=== PATIENT | female | born 1955 | race Caucasian/White ===

== ENCOUNTER → 2019-09-18 | Day surgery (SDC) | payer MEDICARE, MEDICAID ==
[~2019-09-18] MED LIST: Dextrose 5%-Lactated Ringers 1,000 ML IV SCH; Glycopyrrolate 0.2 MG/ML 2 ML SDV IVPUSH ONE; Midazolam 1 MG/ML 2 ML SDV ONE; Propofol 200 MG/20 ML SDV ONE; fentaNYL 100 MCG/2 ML SDV ONE
--- NOTE | 2019-09-18 13:51 | CRLCT ---
INDICATION: Lung nodules, abdominal bloating and nausea COMPARISON: None available TECHNIQUE: Nonenhanced axial CT imaging through the chest, abdomen, and pelvis. Sagittal and coronal reconstructions are provided. Oral contrast was administered. FINDINGS: Chest: There are moderate upper lobe predominant emphysematous changes in the lungs bilaterally. There is bilateral subpleural apical scarring with nodularity. This measures to 2.1 x 2.0 x 4.4 cm in the right lung apex m and 2.0 x 1.9 x 3.9 cm in the left lung apex. Additionally, there is a 1.0 cm partially solid nodular density in the posterior left upper lobe. A few mildly enlarged mediastinal lymph nodes are noted in the pretracheal station, measuring up to 1.3 cm in short axis. There is no airspace consolidation or pulmonary vascular congestion. There is no pleural effusion or pneumothorax. The cardiac silhouette is not enlarged. There are mild scattered coronary artery calcifications. There is no pericardial effusion. The main pulmonary artery and thoracic aorta are normal caliber. The thoracic osseous structures are unremarkable. Abdomen/pelvis: There are numerous enlarged bilateral periaortic lymph nodes measuring up to 2.2 cm in short axis. There is no mesenteric lymphadenopathy. There is unremarkable noncontrast appearance of the liver, gallbladder, pancreas, adrenal glands, and kidneys. The spleen is enlarged, measuring up to 18 cm craniocaudally. There is normal caliber of the abdominal aorta. The stomach and duodenum are unremarkable. There are no abnormally dilated small bowel loops. The appendix is noninflamed. The colon is unremarkable. There is no colonic wall thickening. A cystic lesion is noted in the pelvis, along the posterior margin of the uterus. This measures 11.5 x 11.0 x 8.2 cm. No internal nodularity or septations are appreciated. There is mild chronic compression deformity of L1. There are no suspicious osseous lesions. IMPRESSION: 1. Extensive retroperitoneal lymphadenopathy. Findings are concerning for lymphoma. Mild mediastinal lymphadenopathy may represent additional site of involvement. Further evaluation with PET/CT and biopsy is recommended. 2. Bilateral pulmonary apical subpleural scarring with associated nodularity, slightly more pronounced on the right. Underlying neoplasm is not excluded. Further evaluation with PET/CT is suggested. 3. Moderate apical predominant pulmonary emphysema. 4. Indeterminate pelvic cystic lesion along the posterior margin of the uterus measuring up to 11.5 cm. No enhancing internal nodularity or septations are appreciated. Surgical consultation is recommended. Please note that all CT scans at this facility use dose modulation, iterative reconstruction, and/or weight-based dosing when appropriate to reduce radiation dose to as low as reasonably achievable. Dictated by Sung Velásquez MD @ Sep 18 2019 1:25PM Signed by Dr. Sung Velásquez @ Sep 18 2019 1:49PM
--- NOTE | 2019-09-29 08:32 | OR ---
DATE OF PROCEDURE: 09/18/2019 SURGEON: Vaughn Brand MD PREOPERATIVE DIAGNOSES: Postprandial bloating and nausea associated with small hiatal hernia and mild gastroesophageal reflux disease and mild antral gastritis. OPERATIVE PROCEDURES: Esophagogastroduodenoscopy with: 1. Biopsy of esophagogastric junction for histologic evaluation. 2. Biopsies of antrum for CLOtest. ANESTHESIA: IV sedation. INDICATION FOR PROCEDURE: This is a 64-year-old female presenting with the above-noted symptoms. She was recently started on omeprazole 20 mg a day just a few days ago and has not noted significant change in her symptoms. The plan is to proceed with upper GI endoscopy with biopsies as indicated. Potential risks including bleeding and perforation were discussed, and the patient wishes to proceed. DETAILS OF PROCEDURE: The patient was taken to the operating room and placed in a left lateral decubitus position. IV sedation was administered, after which the upper GI endoscope was passed orally through the length of the esophagus, into the stomach with retroflexion view of the fundus, thereafter through the pyloric channel and into the proximal duodenum. Findings included normal hypopharynx, larynx, upper esophageal sphincter, and esophageal body. At the EG junction, there was a small hiatal hernia and some mild inflammation at the EG junction mucosa. No stricturing or plaquing suggesting neoplasia were seen. In the stomach, there was some patchy redness in the antrum, otherwise, remainder of the stomach and duodenum to the junction of the third and fourth portions were unremarkable. At this point, biopsies were obtained from the antrum and sent for CLOtest for H pylori. Multiple biopsies were obtained from esophagogastric junction and sent for histologic evaluation. Minimal bleeding from the biopsy sites was seen. The patient's symptoms and findings do not appear to be explained by the upper endoscopic findings. It was noted that she had some lung nodules on a CT scan dated 2016, which were thought to warrant PET scanning and possible tissue sampling, but this has not been followed up on. Given this, we obtained a followup CT scan of the chest, as well as CT scan of the abdomen, given her abdominal symptoms. The CT scan of the chest showed the nodules to be somewhat more pronounced, particularly on the right side, and a PET CT was suggested followed by probable tissue sampling. The patient was also noted to have extensive retroperitoneal lymphadenopathy concerning for lymphoma. The next step in this case should likely be a PET scan. We were working on getting arrangements for this in [place] with the patient having transportation issues, but we should be able to work that out. Once those are back, then we can decide on how to approach the tissue sampling issues. Lung biopsies could be done here with Dr. Song Trejo, and if need be, we could do a laparoscopic examination to get some of the retroperitoneal lymph nodes sampled. We will see the patient back next Sunday and may try to keep the care being coordinated. Vaughn Brand MD /[id number]
== END ==
LOC: JP.SDS 07:31
PROVIDERS: ATTEND Surgery
DX: K21.0 Gastro-esophageal reflux disease with esophagitis (principal); K44.9 Diaphragmatic hernia without obstruction or gangrene; K29.70 Gastritis, unspecified, without bleeding; J44.9 Chronic obstructive pulmonary disease, unspecified; E78.5 Hyperlipidemia, unspecified; F17.200 Nicotine dependence, unspecified, uncomplicated; Z79.899 Other long term (current) drug therapy
CPT/HCPCS: 36415; 43239; 71250; 74176; 80053; 85027; 87081; 88305; J2250; J2704; J3010; J3490; J7121

== ENCOUNTER 2020-05-07 13:34 | Emergency (ER) | payer MEDICARE, MEDICAID ==
[2020-05-07] MEDS ORDERED: Sodium Chloride 0.9% 10 ML Syringe FLUSH PRN (14:33)
--- NOTE | 2020-05-07 14:34 | EDM.PDOC ---
<Kecia Johnson M - Last Filed: 05/07/20 15:16> ED HPI GENERAL MEDICAL PROBLEM - General Chief Complaint: General Stated Complaint: I am here because my calcium is high and my kidneys are not doing great Time Seen by Provider: 05/07/20 18:03 Source of Information: Reports: Patient, RN, RN Notes Reviewed History Limitations: Reports: No Limitations - History of Present Illness INITIAL COMMENTS - FREE TEXT/NARRATIVE: Pt here after a dr visit yesterday in [place]. Pt has hypercalcemia 14.6 and poor kidney function. Pt refused to be admitted to [place] but was told she could come here for some "IV fluids". Denies pain, SOB, chills, night sweats, or any neurological or cognitive issues. Pt is anxious to be done with IV fluids and go home as she has a lot to do. Pt is refusing most interventions. - Related Data Allergies Allergy/AdvReac Type Severity Reaction Status Date / Time Penicillins Allergy Unknown Other Verified 05/07/20 13:53 tetanus toxoid, adsorbed Allergy Unknown Swelling Verified 05/07/20 13:53 Home Meds: Home Meds predniSONE [Prednisone] 20 mg PO TID 02/04/20 [History] Loperamide [Imodium] 2 mg PO ASDIRECTED 05/07/20 [History] Past Medical History HEENT History: Reports: Impaired Vision Respiratory History: Reports: COPD, Pneumothorax, Other (See Below) Other Respiratory History: Lung nodlules, hx of pneumo Gastrointestinal History: Reports: GERD, Other (See Below) Other Gastrointestinal History: bloating and abdominal discomfort. left gland on neck infected and removed r/t infected wisdom tooth Genitourinary History: Reports: Chronic Renal Insuffiency, Renal Calculus SURGICAL SERVICES ASST History: Reports: Musculoskeletal History: Reports: Other (See Below) Other Musculoskeletal History: left hip Neurological History: Reports: None - Past Surgical History HEENT Surgical History: Reports: Cataract Surgery Respiratory Surgical History: Reports: Other (See Below) GI Surgical History: Reports: None Female Surgical History: Reports: Tubal Ligation Neurological Surgical History: Reports: Other (See Below) Other Neurological Surgeries/Procedures: compression fx Musculoskeletal Surgical History: Reports: None Social & Family History - Family History Family Medical History: Noncontributory - Tobacco Use Smoking Status *Q: Current Every Day Smoker Years of Tobacco use: 53 Packs/Tins Daily: 0.7 - Caffeine Use Caffeine Use: Reports: Soda - Recreational Drug Use Recreational Drug Use: No ED ROS GENERAL - Review of Systems Review Of Systems: See Below Constitutional: Reports: No Symptoms HEENT: Reports: No Symptoms Respiratory: Reports: No Symptoms Cardiovascular: Reports: No Symptoms Endocrine: Reports: Other (hypercalcemia ) GI/Abdominal: Reports: No Symptoms : Reports: No Symptoms Musculoskeletal: Reports: No Symptoms Skin: Reports: No Symptoms Neurological: Reports: No Symptoms Psychiatric: Reports: No Symptoms Hematologic/Lymphatic: Reports: No Symptoms Immunologic: Reports: No Symptoms ED EXAM, GENERAL - Physical Exam Exam: See Below Exam Limited By: No Limitations General Appearance: Alert, WD/WN, No Apparent Distress Throat/Mouth: No Airway Compromise Head: Normocephalic Neck: Normal Inspection, Supple, Non-Tender, Thyromegaly Respiratory/Chest: No Respiratory Distress Cardiovascular: Regular Rate, Rhythm, No Murmur (Female) Exam: Deferred Rectal (Female) Exam: Deferred Neurological: Alert, Oriented, CN II-XII Intact Psychiatric: Anxious Skin Exam: Warm, Dry Course - Re-Assessments/Exams Free Text/Narrative Re-Assessment/Exam: 05/07/20 15:16 Ica 2.00 and Ca 14.0 Departure - Departure Disposition: Home, Self-Care 01 Clinical Impression: Hypercalcemia - Discharge Information Referrals: Donald Savage MD [Primary Care Provider] - Forms: ED Department Discharge Additional Instructions: Please continue with your prednisone, please follow-up for your lab appointment on Sunday and follow-up with your physicians please return to the emergency department worsening of symptoms, the offer for hospitalization is still remaining to help get your calcium under control Sepsis Event Note (ED) - Evaluation Sepsis Screening Result: No Definite Risk <OfficerEsau - Last Filed: 05/07/20 18:05> ED ROS GENERAL - Review of Systems Review Of Systems: See Below (Agree with below) ED EXAM, GENERAL - Physical Exam Free Text/Narrative:: Agree with below Course - Vital Signs Last Recorded V/S: Last Vital Signs Temp 98.5 F 05/07/20 14:09 Pulse 91 05/07/20 16:14 Resp 16 05/07/20 14:56 BP 110/59 L 05/07/20 16:14 Pulse Ox 99 05/07/20 16:14 - Orders/Labs/Meds Orders: Active Orders 24 hr Category Date Time Status Peripheral IV Care [RC] . DIRECTED Care 05/07/20 14:33 Active Sodium Chloride 0.9% [Normal Saline] 1,000 ml Med 05/07/20 14:45 Active IV ASDIRECTED Sodium Chloride 0.9% [Saline Flush] Med 05/07/20 14:33 Active 10 ml FLUSH ASDIRECTED PRN Peripheral IV Insertion Adult [OM.PC] Urgent Oth 05/07/20 14:32 Ordered Medication Orders Sodium Chloride (Normal Saline) 1,000 mls @ 999 mls/hr IV ASDIRECTED CONCEPCION Last Admin: 05/07/20 16:45 Dose: 999 mls/hr Documented by: Infusion: 05/07/20 16:15 Dose: 999 mls/hr Documented by: Admin: 05/07/20 15:14 Dose: 999 mls/hr Documented by: JC Sodium Chloride (Saline Flush) 10 ml FLUSH ASDIRECTED PRN PRN Reason: Keep Vein Open Last Admin: 05/07/20 15:14 Dose: 10 ml Documented by: JC Labs: Laboratory Tests 05/07/20 05/07/20 05/07/20 Range/Units 14:52 14:52 14:54 WBC 4.7 (4.5-11.0) K/uL RBC 2.53 L (3.30-5.50) M/uL Hgb 7.5 L D (12.0-15.0) g/dL Hct 24.8 L (36.0-48.0) % MCV 98 (80-98) fL MCH 30 (27-31) pg MCHC 30 L (32-36) % Plt Count 190 (150-400) K/uL Neut % (Auto) 90 H (36-66) % Lymph % (Auto) 6 L (24-44) % [place] % (Auto) 4 (2-6) % Eos % (Auto) 0 L (2-4) % Baso % (Auto) 0 (0-1) % Sodium 136 L (140-148) mmol/L Potassium 3.8 (3.6-5.2) mmol/L Chloride 101 (100-108) mmol/L Carbon Dioxide 25 (21-32) mmol/L Anion Gap 13.8 (5.0-14.0) mmol/L BUN 24 H D (7-18) mg/dL Creatinine 3.1 H D (0.6-1.0) mg/dL Est Cr Clr Drug Dosing 14.09 mL/min Estimated GFR (MDRD) 15 L (>60) Glucose 116 H (74-106) mg/dL Calcium 14.0 H* D (8.5-10.1) mg/dL POC WB Ioniz Calcium 2.00 H* (1.12-1.32) mmol/L Total Bilirubin 0.6 (0.2-1.0) mg/dL AST 19 (15-37) U/L ALT 24 (12-78) U/L Alkaline Phosphatase 259 H (46-116) U/L Total Protein 6.4 (6.4-8.2) g/dL Albumin 2.7 L (3.4-5.0) g/dL Globulin 3.7 H (2.3-3.5) g/dL Albumin/Globulin Ratio 0.7 L (1.2-2.2) Meds: Medications Generic Name Dose Route Start Last Admin Trade Name Freq PRN Reason Stop Dose Admin Sodium Chloride 1,000 mls @ 999 mls/hr 05/07/20 14:45 05/07/20 16:45 Normal Saline IV 999 mls/hr ASDIRECTED CONCEPCION Administration Sodium Chloride 10 ml 05/07/20 14:33 05/07/20 15:14 Saline Flush FLUSH 10 ml ASDIRECTED PRN Administration Keep Vein Open Discontinued Medications Generic Name Dose Route Start Last Admin Trade Name Freq PRN Reason Stop Dose Admin Calcitonin [place] 200 units 05/07/20 14:35 05/07/20 15:26 Miacalcin SUBCUT 05/07/20 14:36 Not Given ONETIME ONE Calcitonin [place] 200 units 05/07/20 15:00 05/07/20 15:02 Miacalcin SUBCUT 05/07/20 15:01 200 units ONETIME ONE Administration Departure - Departure Time of Disposition: 18:05 Condition: Poor Sepsis Event Note (ED) - Focused Exam Vital Signs: Vital Signs Temp Pulse Resp BP Pulse Ox 05/07/20 16:14 91 110/59 L 99 05/07/20 15:37 92 107/58 L 100 05/07/20 14:56 92 16 104/55 L 99 05/07/20 14:09 98.5 F 100 20 103/42 L 98 - My Orders Last 24 Hours: My Active Orders 05/07/20 14:32 Peripheral IV Insertion Adult [OM.PC] Urgent 05/07/20 14:33 Peripheral IV Care [RC] . DIRECTED Sodium Chloride 0.9% [Saline Flush] 10 ml FLUSH ASDIRECTED PRN 05/07/20 14:45 Sodium Chloride 0.9% [Normal Saline] 1,000 ml IV ASDIRECTED - Assessment/Plan Last 24 Hours: My Active Orders 05/07/20 14:32 Peripheral IV Insertion Adult [OM.PC] Urgent 05/07/20 14:33 Peripheral IV Care [RC] . DIRECTED Sodium Chloride 0.9% [Saline Flush] 10 ml FLUSH ASDIRECTED PRN 05/07/20 14:45 Sodium Chloride 0.9% [Normal Saline] 1,000 ml IV ASDIRECTED Plan: Assessment Acuity = acute Site and laterality = hypercalcemia Etiology = possibly related to sarcoidosis Manifestations = none Location of injury = Home Lab values = hemoglobin low at 10.5 consistent normochromic anemia creatinine elevated 3.1 consistent with chronic renal failure stage G5 calcium elevated 14.0 consistent with severe hypercalcemia ionized calcium is 2.0 Plan I adamantly pushed her for hospitalization of which she declined I offered to provide the calcitonin however she will not do injection shots she is taking prednisone 20 mg a day. She has lab work due on Sunday I instructed her any development of symptoms please return to the emergency department This note was dictated using [employer] voice recognition software please call with any questions on syntax or grammar.
[2020-05-07] MEDS ORDERED: Calcitonin (Salmon) 200 Units/ML 2 ML MDV SUBCUT ONE ×2 (14:35→15:00)
[2020-05-07] MEDS: Sodium Chloride 0.9% 1,000 ML IV SCH ×2 (15:14→16:45)
== END 2020-05-07 18:14 | disposition home or self-care (01) ==
LOC: JP.ED 13:34
DX: E83.52 Hypercalcemia (principal); J44.9 Chronic obstructive pulmonary disease, unspecified; N18.9 Chronic kidney disease, unspecified; F17.210 Nicotine dependence, cigarettes, uncomplicated; Z98.51 Tubal ligation status; Z88.0 Allergy status to penicillin; Z88.7 Allergy status to serum and vaccine; Z79.899 Other long term (current) drug therapy
CPT/HCPCS: 36415; 80053; 82330; 85025; 96360; 99283; J0630; J7030